=== PATIENT | female | born 1975 | race Caucasian/White ===

== ENCOUNTER 2016-12-24 04:22 | Emergency (ER) | payer MEDICAID ==
[2016-12-24 05:46] VITALS: BP 142/77
== END 2016-12-24 05:46 | disposition home or self-care (01) ==
LOC: ED 04:22
DX: M43.6 Torticollis (principal)
CPT/HCPCS: J1885; J2270; Q0162

== ENCOUNTER 2016-12-31 08:50 | Emergency (ER) | payer MEDICAID ==
[~2016-12-31] VITALS: Ht 157.5 cm; Wt 62.6 kg
[2016-12-31 10:19] VITALS: BP 125/85
== END 2016-12-31 10:27 | disposition home or self-care (01) ==
LOC: ED 08:50
DX: O26.891 Other specified pregnancy related conditions, first trimester (principal); M62.838 Other muscle spasm; Z3A.00 Weeks of gestation of pregnancy not specified
CPT/HCPCS: 20552; J2001

== ENCOUNTER 2017-05-05 15:39 | Emergency (ER) | payer MEDICAID ==
[2017-05-05 17:33] VITALS: BP 103/66
== END 2017-05-05 17:33 | disposition home or self-care (01) ==
LOC: ED 15:39
DX: O26.892 Other specified pregnancy related conditions, second trimester (principal); B34.9 Viral infection, unspecified; Z3A.24 24 weeks gestation of pregnancy

== ENCOUNTER 2017-08-16 12:09 | Emergency (ER) | payer MEDICAID ==
[~2017-08-16] VITALS: Ht 152.4 cm; Wt 62.6 kg
[2017-08-16 12:19] VITALS: BP 144/97; Ht 152.4 cm; Wt 62.6 kg
== END 2017-08-16 13:00 | disposition home or self-care (01) ==
LOC: ED 12:09
DX: O90.89 Other complications of the puerperium, not elsewhere classified (principal); K59.00 Constipation, unspecified